=== PATIENT | male | born 1950 | race Caucasian/White ===

== ENCOUNTER 2017-12-04 00:54 | Outpatient (CLI) | payer MEDICARE, MEDICAID, SELFPAY ==
--- NOTE | 2017-12-04 10:09 | DI.US_ITS ---
SYMPTOMS/DIAGNOSIS: F/U CYST AND STONES, N28.1, N20.1, Z80.51 RENAL ULTRASOUND: The right kidney measures 12.2 x 5 x 7.5 cm, the left kidney 12.3 x 5.9 x 6.3 cm. The prevoid bladder contains 94 cc, the postvoid bladder 9 cc. Both ureteral jets were demonstrated. The bladder wall thickness is 2 mm. There is a 1.8 x 1.7 x 2.1 cm mid to lateral lower pole cyst in the left kidney. A 3 mm echogenic focus in the mid pole of the left kidney could represent a small stone. There is no evidence of hydronephrosis. The right kidney is unremarkable. Incidental note is made of multiple apparently solid areas of nodularity in the right hepatic lobe, the largest of which measures 3.9 x 3.2 x 4.0 cm and appears avascular. Further assessment of this patient with multiphasic abdominal CT is recommended.
[2017-12-04 15:48] LABS: Bilirubin Negative (Negative); Blood Trace-intact (Negative); Clarity Clear; Glucose >=1000 mg/dL (Negative); Ketones Negative (Negative); Leukocyte Esterase Negative (Negative); Nitrite Negative (Negative); pH 5.5 (5-8)
[2017-12-04 16:13] LABS: Bacteria Negative HPF (Negative); Casts Negative LPF (Negative); Crystals Negative HPF (Negative); Epithelial Cells Rare HPF (Negative); Mucus Negative (Negative); Other Cells Negative (Negative); RBC Negative (0-2); WBC 0-2 HPF (0-5)
[2017-12-04 16:14] LABS: C & S Indicated? No
== END 2017-12-04 01:14 ==
PROVIDERS: PCP Family Medicine; Visit Provider Urology
DX: N39.0 Urinary tract infection, site not specified (principal); N20.1 Calculus of ureter; K76.89 Other specified diseases of liver; Z80.51 Family history of malignant neoplasm of kidney; R16.0 Hepatomegaly, not elsewhere classified; N28.1 Cyst of kidney, acquired
CPT/HCPCS: 36415; 76770; 99213; 81003; 81015; 82565

== ENCOUNTER 2017-12-11 00:38 | Outpatient (CLI) | payer MEDICARE, MEDICAID, SELFPAY ==
--- NOTE | 2017-12-11 07:07 | DI.CT_ITS ---
SYMPTOMS/DIAGNOSIS: EVALUATE LIVER MASS AND POSSIBLE PRIMARY SITES, R16.0 CT OF THE CHEST, ABDOMEN AND PELVIS: Images were performed from the clavicle through the ischial tuberosities after IV and oral contrast. The abdominal scan was performed during both venous and arterial phases. CHEST CT: There is a spiculated mass in the right upper lobe, measuring 1.1 cm. A few small nodules are seen in the right middle lobe, measuring less than 5 mm. There are multiple small nodules in the right lower lobe, the largest is a cavitary lesion at the posterior lung base, measuring 8 mm. Multiple less than 5 mm nodules are seen in both left upper and lower lobes. There is no adenopathy, pleural or pericardial effusions. There is a destructive expansile bony lesion involving the left side of the T3 vertebral body. An additional small lytic lesion is seen in the right lamina of T2. There is a small focal lytic lesion seen in the posterior body of the T7 vertebral body. There is a sclerotic lesion in the right side of the T8 vertebral body, which could represent a bone island. ABDOMEN AND PELVIS: Multiple irregular low density lesions are noted throughout the liver. The largest is at the inferomedial right lobe, measuring 3.4 cm. The patient is status post cholecystectomy. There is no biliary dilatation. There is a large mass involving the body and tail of the pancreas, which has an invasive appearance, which measures 6.7 x 3.2 x 3.9 cm. The mass is directly contiguous with the inferior aspect of the stomach, which shows focal wall thickening. The splenic artery appears patent. There is some attenuation of the splenic vein as it courses posterior to the mass. Small lymph nodes are seen in the portal caval region. The adrenals, spleen and right kidney are unremarkable. There is a tiny nonobstructing stone near the upper pole of the left kidney. A cyst is noted on the left kidney. There is prominent diverticulosis of the sigmoid colon and wall thickening. There is no gross evidence of a mass. The oral contrast extends to the small bowel, but not the colon. The prostate is slightly enlarged. The bladder appears normal. There is mild calcification of the aorta and iliac arteries. No ascites or bony lesions are identified in the abdomen or pelvis. IMPRESSION: Pancreatic mass with liver metastases and pulmonary metastases, as well as regionally enlarged lymph nodes. Bony metastases are noted in the thoracic spine.
[2017-12-11] MEDS: Omnipaque 350 MG/ML 100 ML BTL IJ (08:55)
[2017-12-11] MEDS: Omnipaque 350 MG/ML 50 ML BTL IJ (08:56)
== END 2017-12-11 00:58 ==
PROVIDERS: PCP Family Medicine; Visit Provider Nurse Practitioner Gerontology
DX: C25.1 Malignant neoplasm of body of pancreas (principal); C78.01 Secondary malignant neoplasm of right lung; C79.51 Secondary malignant neoplasm of bone; C78.7 Secondary malignant neoplasm of liver and intrahepatic bile duct; R59.0 Localized enlarged lymph nodes; N28.1 Cyst of kidney, acquired; K57.30 Diverticulosis of large intestine without perforation or abscess without bleeding; N40.0 Benign prostatic hyperplasia without lower urinary tract symptoms
CPT/HCPCS: 74177; 71260; J3490; Q9967

== ENCOUNTER → 2017-12-31 08:41 | Outpatient (BNVA) | payer MEDICARE, MEDICAID, SELFPAY | PROVIDERS: PCP Family Medicine; Visit Provider Urology | DX: N50.9 Disorder of male genital organs, unspecified (principal); C25.9 Malignant neoplasm of pancreas, unspecified; E11.9 Type 2 diabetes mellitus without complications; Z79.84 Long term (current) use of oral hypoglycemic drugs | CPT/HCPCS: 99213 ==

== ENCOUNTER 2018-01-04 15:10 | Outpatient (CLI) | payer MEDICARE, MEDICAID, SELFPAY ==
--- NOTE | 2018-01-04 15:00 | DIABASSESS_ITS ---
DESCRIPTION/ASSESSMENT: Mr. Burks presents for diabetes self management to learn insulin injection with a support person. He voices that insulin is required because of his pancreatic cancer. He also is concerned about his weight loss and wants to regain some of that. He monitors his blood sugars every morning and bedtime. Blood sugars reported in the 200s. He downloads his glucometer and prints out the results. He has been told by the RD at [facility] that he can he whatever he wants which is supported from here as well. He states he is familiar with insulin injection as he has done it to others in the past. INTERVENTION: Instructed in the use insulin pen and he is able to return demonstration without difficulty except for the need to hold needle in for 10 seconds. He voices understanding of this. Instructed in needle disposal, injection sites, hypogycemia symptoms and treatment. ACTION PLAN: He will initiate insulin as directed by PCP canelo. He knows to call with questions. Individual DSME/T ___0_ units billed Face to face 20 minutes. No DM group education series being offered at this time.
== END 2018-01-04 15:30 ==
PROVIDERS: PCP Family Medicine; Visit Provider Dietitian, Registered
DX: E11.9 Type 2 diabetes mellitus without complications (principal); Z79.4 Long term (current) use of insulin

== ENCOUNTER 2018-01-15 08:56 | Outpatient (RCR) | payer MEDICARE, MEDICAID, SELFPAY ==
[2018-01-15] MEDS: Normal Saline Flush 10 ML SYR IVP (09:05)
[2018-01-15 09:28] LABS: Abs Immature Grans 0.03 k/cumm (0.0-0.09); Absolute Basophil Count 0.02 k/cumm (0.0-0.2); Absolute Eosinophil Count 0.11 k/cumm (0.0-0.7); Absolute Lymphocyte Count 1.24 k/cumm (1.2-3.4); Absolute Monocyte Count 1.11 k/cumm (0.11-0.7); Absolute Neutrophil Count 6.69 k/cumm (1.2-6.7); Basophils % 0.2; Eosinophils % 1.2; HCT 37.7 % (40.0-50.0); HGB 12.5 g/dL (13.5-17.5); Immature Grans % 0.3; Lymphocytes % 13.5; Mean Corp. HGB Concentration 33.2 g/dL (32.0-36.0); Mean Corpuscular Hemoglobin 29.7 pg (27.0-33.0); Mean Corpuscular Volume 89.5 fL (80-95); Mean Platelet Volume 11.6 fL (8.0-11.0); Monocytes % 12.1; Neutrophils % 72.7; Platelet Count 275 x1000/uL (130-400); RBC 4.21 m/cumm (4.50-6.00); RBC Distribution Width 12.1 % (11.8-14.1)
[2018-01-15 09:40] LABS: ALT 28 U/L (12-78); AST 16 U/L (15-37); Alkaline Phosphatase 189 U/L (46-116); Anion Gap 7.1 mmol/L (3-11); BUN 14 mg/dL (7-18); Bilirubin, Total 0.7 mg/dL (0.2-1.0); CO2 28.9 mmol/L (21.0-32.0); CREATININE 0.95 mg/dL (0.70-1.30); Calcium 9.2 mg/dL (8.5-10.1); Chloride 98 mmol/L (98-107); Glucose 303 mg/dL (70-100); Potassium 4.2 mmol/L (3.5-5.1); Sodium 134 mmol/L (136-145); Total Protein 7.7 g/dL (6.4-8.2)
== END 2018-01-18 23:59 | disposition home or self-care (01) ==
LOC: INF 08:56
PROVIDERS: PCP Family Medicine; Visit Provider Nurse Practitioner Adult Health
DX: C25.1 Malignant neoplasm of body of pancreas (principal); Z45.2 Encounter for adjustment and management of vascular access device
CPT/HCPCS: 36591; 80053; 85025

== ENCOUNTER 2018-02-08 01:33 | Outpatient (RCR) | payer MEDICARE, MEDICAID, SELFPAY ==
[2018-01-25 09:02] LABS: Absolute Basophil Count 0.01 k/cumm (0.0-0.2); Absolute Eosinophil Count 0.12 k/cumm (0.0-0.7); Absolute Lymphocyte Count 0.98 k/cumm (1.2-3.4); Absolute Monocyte Count 0.52 k/cumm (0.11-0.7); Absolute Neutrophil Count 1.69 k/cumm (1.2-6.7); Basophils % 0.3; Eosinophils % 3.6; HCT 34.6 % (40.0-50.0); HGB 11.7 g/dL (13.5-17.5); Lymphocytes % 29.5; Mean Corp. HGB Concentration 33.8 g/dL (32.0-36.0); Mean Corpuscular Hemoglobin 29.4 pg (27.0-33.0); Mean Corpuscular Volume 86.9 fL (80-95); Mean Platelet Volume 10.6 fL (8.0-11.0); Monocytes % 15.7; Neutrophils % 50.9; Platelet Count 251 x1000/uL (130-400); RBC 3.98 m/cumm (4.50-6.00); RBC Distribution Width 11.7 % (11.8-14.1); White Blood Cell Count 3.32 k/cumm (4.4-10.8)
[2018-01-25 09:14] LABS: ALT 41 U/L (12-78); AST 20 U/L (15-37); Albumin 2.7 g/dL (3.4-5.0); Alkaline Phosphatase 210 U/L (46-116); Anion Gap 11.7 mmol/L (3-11); BUN 14 mg/dL (7-18); Bilirubin, Total 0.5 mg/dL (0.2-1.0); CO2 27.3 mmol/L (21.0-32.0); CREATININE 0.89 mg/dL (0.70-1.30); Calcium 9.1 mg/dL (8.5-10.1); Chloride 96 mmol/L (98-107); Glucose 146 mg/dL (70-100); Potassium 3.9 mmol/L (3.5-5.1); Sodium 135 mmol/L (136-145); Total Protein 7.1 g/dL (6.4-8.2)
[2018-01-25] MEDS: Normal Saline Flush 10 ML SYR IVP (09:37)
[2018-02-08] MEDS: Normal Saline Flush 10 ML SYR IVP (10:42)
[2018-02-08 10:57] LABS: Absolute Basophil Count 0.01 k/cumm (0.0-0.2); Absolute Eosinophil Count 0.04 k/cumm (0.0-0.7); Absolute Lymphocyte Count 0.69 k/cumm (1.2-3.4); Absolute Monocyte Count 0.26 k/cumm (0.11-0.7); Absolute Neutrophil Count 1.04 k/cumm (1.2-6.7); Basophils % 0.5; HCT 32.2 % (40.0-50.0); HGB 10.7 g/dL (13.5-17.5); Lymphocytes % 33.8; Mean Corp. HGB Concentration 33.2 g/dL (32.0-36.0); Mean Corpuscular Hemoglobin 29.2 pg (27.0-33.0); Mean Platelet Volume 10.5 fL (8.0-11.0); Monocytes % 12.7; Platelet Count 173 x1000/uL (130-400); RBC 3.66 m/cumm (4.50-6.00); RBC Distribution Width 12.4 % (11.8-14.1); White Blood Cell Count 2.04 k/cumm (4.4-10.8)
[2018-02-08 11:08] LABS: ALT 51 U/L (12-78); AST 20 U/L (15-37); Albumin 2.6 g/dL (3.4-5.0); Alkaline Phosphatase 216 U/L (46-116); Anion Gap 9.7 mmol/L (3-11); BUN 15 mg/dL (7-18); Bilirubin, Total 0.6 mg/dL (0.2-1.0); CO2 26.3 mmol/L (21.0-32.0); CREATININE 0.76 mg/dL (0.70-1.30); Chloride 99 mmol/L (98-107); Glucose 241 mg/dL (70-100); Potassium 3.7 mmol/L (3.5-5.1); Sodium 135 mmol/L (136-145); Total Protein 6.8 g/dL (6.4-8.2)
[2018-02-08 11:16] LABS: Diff Comment Agrees w/ Instrument; RBC Morphology Normal
[2018-02-11 12:36] LABS: CA 19-9 22 U/mL (<35)
== END 2018-02-18 23:59 | disposition home or self-care (01) ==
LOC: INF 01:33
PROVIDERS: PCP Family Medicine; Visit Provider Nurse Practitioner Adult Health
DX: C25.1 Malignant neoplasm of body of pancreas (principal); Z45.2 Encounter for adjustment and management of vascular access device
CPT/HCPCS: 36591; 80053; 96523; 85025; 86301

== ENCOUNTER 2018-02-18 01:26 | Outpatient (RCR) | payer MEDICARE, MEDICAID, SELFPAY | END 2018-02-18 23:59 | disposition home or self-care (01) | LOC: INF 01:26 | PROVIDERS: PCP Family Medicine; Visit Provider Nurse Practitioner Adult Health | DX: R69 Illness, unspecified (principal) ==

== ENCOUNTER 2018-03-12 00:39 | Outpatient (CLI) | payer MEDICARE, MEDICAID, SELFPAY ==
--- NOTE | 2018-03-12 09:00 | DI.CT_ITS ---
SYMPTOMS/DIAGNOSIS: STAGE IV PANCREATIC CA, ON CHEMO, C25.9, C78.7 CT SCAN OF THE CHEST, ABDOMEN AND PELVIS: CT scan of the chest, abdomen and pelvis was performed according to protocol. CT SCAN OF THE ABDOMEN AND PELVIS: There are again seen multiple hepatic metastases. The largest is seen in the caudal aspect of the right lobe of the liver. It has shown interval increase in size measuring 4.6 cm AP x 4.4 cm transverse compared with 3 x 3.4 cm. There also appears to be interval increase in number of the hepatic metastases. The patient is status post cholecystectomy. There is no biliary ductal dilatation. There is again seen a mass in the body of the pancreas. It measures 6.8 cm long x 4 cm AP. It appears to be contiguous with or involving the body of the stomach. There also appears to be encasement of the splenic artery and vein. The mid portion of the splenic vein is not visualized. There appear to varices adjacent to the head of the pancreas and within the splenic hilum. The splenic artery does appear to be visualized but at least partially encased by the pancreatic mass. There is no evidence of an adrenal mass. The spleen appears grossly unremarkable. The kidneys show normal and symmetric enhancement. No evidence of a solid renal mass or obstruction. There is a left renal cyst present. The urinary bladder is intact. The reproductive organs are unremarkable. There have developed soft tissue masses with the abdomen in the region of the omentum suspicious for omental metastases disease. The bowel shows no evidence of obstruction or inflammation. There is a normal appendix visualized. Degenerative changes are seen in the spine. No osseous metastases are identified. The aorta is of normal caliber. No pneumoperitoneum is present. IMPRESSION: 1. Increase in number and size of hepatic metastases. 2. Development of masses within the abdominal cavity suspicious for omental metastatic disease. 3. Mass involving the body and portion of the tail of the pancreas with probable obstruction of the mid splenic vein with varices seen around the pancreatic head and the splenic hilum. CT SCAN OF THE CHEST: The thoracic aorta is of normal caliber. The central pulmonary arteries are patent. The heart size is within normal limits. No significant pericardial effusion is seen. There are mildly enlarged lymph nodes seen in the mediastinum. There is again seen a 1 cm nodule in the pericardial fat on the left. No pleural effusion or pneumothorax is identified. There are again seen multiple pulmonary nodules. The largest nodule in the right upper lobe has shown interval decrease in size. No definite new pulmonary nodules are seen. No infiltrates are seen. The tracheobronchial tree is unremarkable. The lytic lesions at T 2, T 3 and T 7 have all increased in size. There also now appear to be lytic lesions at T 10 and T 11. The lytic lesion at T 3 now shows compression of the superior endplate and a fracture in the inferior endplate. IMPRESSION: 1. Progression of the osseous metastatic disease with a pathologic fracture involving the T 3 vertebral body. There is mild loss of height of the vertebral body noted. 2. Multiple pulmonary nodules. The largest previously noted nodule in the right upper lobe has shown interval decrease in size.
[2018-03-12] MEDS: Omnipaque 350 MG/ML 100 ML BTL IJ (11:20)
[2018-03-12] MEDS: Omnipaque 350 MG/ML 50 ML BTL IJ (11:21)
[2018-03-12] MEDS: Breeza Beverage 473 ML BTL PO (11:21)
== END 2018-03-12 00:59 ==
PROVIDERS: PCP Family Medicine; Visit Provider Internal Medicine Hematology & Oncology
DX: C25.9 Malignant neoplasm of pancreas, unspecified (principal); C78.7 Secondary malignant neoplasm of liver and intrahepatic bile duct; C79.51 Secondary malignant neoplasm of bone; C78.6 Secondary malignant neoplasm of retroperitoneum and peritoneum; R91.8 Other nonspecific abnormal finding of lung field; Z92.21 Personal history of antineoplastic chemotherapy
CPT/HCPCS: 74177; 96523; 71260; J3490; Q9967

== ENCOUNTER 2018-03-15 00:55 | Outpatient (RCR) | payer MEDICARE, MEDICAID, SELFPAY ==
[2018-03-01] MEDS: Heparin 500 UNITS/5 ML SYRINGE IV (13:05)
[2018-03-01] MEDS: Normal Saline Flush 10 ML SYR IVP (13:05)
[2018-03-01 13:08] LABS: Abs Immature Grans 0.01 k/cumm (0.0-0.09); Absolute Basophil Count 0.03 k/cumm (0.0-0.2); Absolute Eosinophil Count 0.27 k/cumm (0.0-0.7); Absolute Lymphocyte Count 1.03 k/cumm (1.2-3.4); Absolute Monocyte Count 0.58 k/cumm (0.11-0.7); Absolute Neutrophil Count 2.38 k/cumm (1.2-6.7); Basophils % 0.7; Eosinophils % 6.3; HCT 31.5 % (40.0-50.0); HGB 10.2 g/dL (13.5-17.5); Immature Grans % 0.2; Mean Corp. HGB Concentration 32.4 g/dL (32.0-36.0); Mean Corpuscular Hemoglobin 28.9 pg (27.0-33.0); Mean Corpuscular Volume 89.2 fL (80-95); Mean Platelet Volume 10.1 fL (8.0-11.0); Monocytes % 13.5; Neutrophils % 55.3; Platelet Count 291 x1000/uL (130-400); RBC 3.53 m/cumm (4.50-6.00); RBC Distribution Width 14.8 % (11.8-14.1)
[2018-03-01 13:21] LABS: ALT 38 U/L (12-78); AST 22 U/L (15-37); Albumin 2.7 g/dL (3.4-5.0); Alkaline Phosphatase 229 U/L (46-116); Anion Gap 8.7 mmol/L (3-11); BUN 21 mg/dL (7-18); Bilirubin, Total 0.5 mg/dL (0.2-1.0); CO2 27.3 mmol/L (21.0-32.0); CREATININE 0.96 mg/dL (0.70-1.30); Calcium 9.1 mg/dL (8.5-10.1); Chloride 100 mmol/L (98-107); Glucose 193 mg/dL (70-100); Potassium 4.2 mmol/L (3.5-5.1); Sodium 136 mmol/L (136-145); Total Protein 7.2 g/dL (6.4-8.2)
[2018-03-04 10:10] LABS: CA 19-9 21 U/mL (<35)
[2018-03-12] MEDS: Heparin 500 UNITS/5 ML SYRINGE IV (09:10)
[2018-03-12] MEDS: Normal Saline Flush 10 ML SYR IVP (09:10)
[2018-03-15] MEDS: Normal Saline Flush 10 ML SYR IVP (13:14)
[2018-03-15] MEDS: Heparin 500 UNITS/5 ML SYRINGE IV (13:14)
[2018-03-15 13:30] LABS: Abs Immature Grans 0.01 k/cumm (0.0-0.09); Absolute Basophil Count 0.01 k/cumm (0.0-0.2); Absolute Eosinophil Count 0.05 k/cumm (0.0-0.7); Absolute Lymphocyte Count 1.08 k/cumm (1.2-3.4); Absolute Monocyte Count 0.47 k/cumm (0.11-0.7); Absolute Neutrophil Count 2.04 k/cumm (1.2-6.7); Basophils % 0.3; Eosinophils % 1.4; HCT 30.4 % (40.0-50.0); HGB 9.9 g/dL (13.5-17.5); Immature Grans % 0.3; Lymphocytes % 29.5; Mean Corp. HGB Concentration 32.6 g/dL (32.0-36.0); Mean Corpuscular Hemoglobin 29.2 pg (27.0-33.0); Mean Corpuscular Volume 89.7 fL (80-95); Mean Platelet Volume 9.8 fL (8.0-11.0); Monocytes % 12.8; Neutrophils % 55.7; Platelet Count 162 x1000/uL (130-400); RBC 3.39 m/cumm (4.50-6.00); RBC Distribution Width 15.3 % (11.8-14.1); White Blood Cell Count 3.66 k/cumm (4.4-10.8)
[2018-03-15 13:44] LABS: ALT 48 U/L (12-78); AST 31 U/L (15-37); Albumin 2.8 g/dL (3.4-5.0); Alkaline Phosphatase 288 U/L (46-116); Anion Gap 8.3 mmol/L (3-11); BUN 19 mg/dL (7-18); Bilirubin, Total 0.4 mg/dL (0.2-1.0); CO2 28.7 mmol/L (21.0-32.0); CREATININE 0.81 mg/dL (0.70-1.30); Calcium 8.9 mg/dL (8.5-10.1); Chloride 101 mmol/L (98-107); Glucose 131 mg/dL (70-100); Potassium 4.1 mmol/L (3.5-5.1); Sodium 138 mmol/L (136-145); Total Protein 7.2 g/dL (6.4-8.2)
[2018-03-18 11:31] LABS: CA 19-9 25 U/mL (<35)
== END 2018-03-21 23:59 | disposition home or self-care (01) ==
LOC: INF 00:55
PROVIDERS: PCP Family Medicine; Visit Provider Nurse Practitioner Adult Health
DX: C25.1 Malignant neoplasm of body of pancreas (principal); Z45.2 Encounter for adjustment and management of vascular access device
CPT/HCPCS: 36591; 80053; 96523; 85025; 86301

== ENCOUNTER 2018-04-12 01:01 | Outpatient (RCR) | payer MEDICARE, MEDICAID, SELFPAY ==
[2018-03-29] MEDS: Normal Saline Flush 10 ML SYR IVP (08:55)
[2018-03-29 09:17] LABS: Abs Immature Grans 0.01 k/cumm (0.0-0.09); Absolute Basophil Count 0.01 k/cumm (0.0-0.2); Absolute Eosinophil Count 0.02 k/cumm (0.0-0.7); Absolute Lymphocyte Count 0.92 k/cumm (1.2-3.4); Absolute Monocyte Count 0.46 k/cumm (0.11-0.7); Absolute Neutrophil Count 2.66 k/cumm (1.2-6.7); Basophils % 0.2; Eosinophils % 0.5; HCT 27.9 % (40.0-50.0); Immature Grans % 0.2; Lymphocytes % 22.5; Mean Corp. HGB Concentration 31.5 g/dL (32.0-36.0); Mean Corpuscular Hemoglobin 28.9 pg (27.0-33.0); Mean Corpuscular Volume 91.8 fL (80-95); Mean Platelet Volume 9.8 fL (8.0-11.0); Monocytes % 11.3; Neutrophils % 65.3; Platelet Count 169 x1000/uL (130-400); RBC 3.04 m/cumm (4.50-6.00); RBC Distribution Width 15.3 % (11.8-14.1); White Blood Cell Count 4.08 k/cumm (4.4-10.8)
[2018-03-29 09:30] LABS: ALT 43 U/L (12-78); AST 26 U/L (15-37); Albumin 2.4 g/dL (3.4-5.0); Alkaline Phosphatase 380 U/L (46-116); Anion Gap 8.1 mmol/L (3-11); BUN 17 mg/dL (7-18); Bilirubin, Total 0.6 mg/dL (0.2-1.0); CO2 27.9 mmol/L (21.0-32.0); Calcium 8.8 mg/dL (8.5-10.1); Chloride 100 mmol/L (98-107); Glucose 149 mg/dL (70-100); HGB 8.8 g/dL (13.5-17.5); Potassium 4.1 mmol/L (3.5-5.1); Sodium 136 mmol/L (136-145); Total Protein 7.6 g/dL (6.4-8.2)
[2018-04-04] MEDS: Normal Saline Flush 10 ML SYR IVP (10:10)
[2018-04-04 10:30] LABS: Abs Immature Grans 0.01 k/cumm (0.0-0.09); Absolute Basophil Count 0.01 k/cumm (0.0-0.2); Absolute Lymphocyte Count 0.78 k/cumm (1.2-3.4); Absolute Neutrophil Count 0.82 k/cumm (1.2-6.7); Basophils % 0.5; HCT 25.4 % (40.0-50.0); HGB 8.1 g/dL (13.5-17.5); Immature Grans % 0.5; Lymphocytes % 42.9; Mean Corp. HGB Concentration 31.9 g/dL (32.0-36.0); Mean Corpuscular Hemoglobin 29.7 pg (27.0-33.0); Mean Platelet Volume 10.4 fL (8.0-11.0); Neutrophils % 45.1; Platelet Count 148 x1000/uL (130-400); RBC 2.73 m/cumm (4.50-6.00); RBC Distribution Width 15.5 % (11.8-14.1)
[2018-04-04 10:44] LABS: ALT 49 U/L (12-78); AST 36 U/L (15-37); Albumin 2.4 g/dL (3.4-5.0); Alkaline Phosphatase 389 U/L (46-116); Anion Gap 7.5 mmol/L (3-11); BUN 17 mg/dL (7-18); Bilirubin, Total 0.4 mg/dL (0.2-1.0); CO2 28.5 mmol/L (21.0-32.0); CREATININE 0.84 mg/dL (0.70-1.30); Calcium 8.7 mg/dL (8.5-10.1); Chloride 102 mmol/L (98-107); Glucose 165 mg/dL (70-100); Sodium 138 mmol/L (136-145); Total Protein 7.2 g/dL (6.4-8.2)
[2018-04-04 10:48] LABS: Diff Comment Diff Reviewed; RBC Morphology Normal; White Blood Cell Count 1.82 k/cumm (4.4-10.8)
[2018-04-12] MEDS: Normal Saline Flush 10 ML SYR IVP (08:24)
[2018-04-12 08:39] LABS: Abs Immature Grans 0.02 k/cumm (0.0-0.09); Absolute Basophil Count 0.04 k/cumm (0.0-0.2); Absolute Eosinophil Count 0.07 k/cumm (0.0-0.7); Absolute Lymphocyte Count 1.03 k/cumm (1.2-3.4); Absolute Monocyte Count 1.07 k/cumm (0.11-0.7); Absolute Neutrophil Count 3.64 k/cumm (1.2-6.7); Basophils % 0.7; Eosinophils % 1.2; HCT 27.8 % (40.0-50.0); HGB 8.8 g/dL (13.5-17.5); Immature Grans % 0.3; Lymphocytes % 17.5; Mean Corp. HGB Concentration 31.7 g/dL (32.0-36.0); Mean Corpuscular Hemoglobin 29.4 pg (27.0-33.0); Mean Platelet Volume 9.6 fL (8.0-11.0); Monocytes % 18.2; Neutrophils % 62.1; RBC 2.99 m/cumm (4.50-6.00); RBC Distribution Width 16.1 % (11.8-14.1); White Blood Cell Count 5.87 k/cumm (4.4-10.8)
[2018-04-12 08:47] LABS: ALT 32 U/L (12-78); AST 26 U/L (15-37); Albumin 2.4 g/dL (3.4-5.0); Alkaline Phosphatase 371 U/L (46-116); Anion Gap 6.3 mmol/L (3-11); BUN 18 mg/dL (7-18); Bilirubin, Total 0.3 mg/dL (0.2-1.0); CO2 28.7 mmol/L (21.0-32.0); CREATININE 0.87 mg/dL (0.70-1.30); Calcium 8.2 mg/dL (8.5-10.1); Chloride 101 mmol/L (98-107); Glucose 134 mg/dL (70-100); Potassium 4.4 mmol/L (3.5-5.1); Sodium 136 mmol/L (136-145); Total Protein 7.4 g/dL (6.4-8.2)
[2018-04-12 08:52] LABS: Anisocytosis 1+; Diff Comment RBC Morph Reviewed; Platelet Count 575 x1000/uL (130-400); Polychromasia Present
== END 2018-04-18 23:59 | disposition home or self-care (01) ==
LOC: INF 01:01
PROVIDERS: Nurse Practitioner Adult Health; PCP Family Medicine; Visit Provider Internal Medicine Hematology & Oncology
DX: C25.1 Malignant neoplasm of body of pancreas (principal); Z45.2 Encounter for adjustment and management of vascular access device
CPT/HCPCS: 36591; 80053; 85025

== ENCOUNTER 2018-05-10 01:04 | Outpatient (RCR) | payer MEDICARE, MEDICAID, SELFPAY ==
[2018-04-19] MEDS: Normal Saline Flush 10 ML SYR IVP (07:49)
[2018-04-19 08:07] LABS: Abs Immature Grans 0.05 k/cumm (0.0-0.09); Absolute Basophil Count 0.05 k/cumm (0.0-0.2); Absolute Eosinophil Count 0.03 k/cumm (0.0-0.7); Absolute Lymphocyte Count 0.98 k/cumm (1.2-3.4); Absolute Monocyte Count 0.72 k/cumm (0.11-0.7); Absolute Neutrophil Count 2.93 k/cumm (1.2-6.7); Basophils % 1.1; Eosinophils % 0.6; HCT 25.4 % (40.0-50.0); Immature Grans % 1.1; Lymphocytes % 20.6; Mean Corp. HGB Concentration 31.9 g/dL (32.0-36.0); Mean Corpuscular Hemoglobin 29.5 pg (27.0-33.0); Mean Corpuscular Volume 92.4 fL (80-95); Mean Platelet Volume 10.4 fL (8.0-11.0); Monocytes % 15.1; Neutrophils % 61.5; Platelet Count 250 x1000/uL (130-400); RBC 2.75 m/cumm (4.50-6.00); RBC Distribution Width 15.1 % (11.8-14.1); White Blood Cell Count 4.76 k/cumm (4.4-10.8)
[2018-04-19 08:10] LABS: ALT 44 U/L (12-78); AST 35 U/L (15-37); Albumin 2.4 g/dL (3.4-5.0); Alkaline Phosphatase 397 U/L (46-116); Anion Gap 7.4 mmol/L (3-11); BUN 18 mg/dL (7-18); Bilirubin, Total 0.3 mg/dL (0.2-1.0); CO2 28.6 mmol/L (21.0-32.0); CREATININE 0.86 mg/dL (0.70-1.30); Calcium 8.5 mg/dL (8.5-10.1); Chloride 101 mmol/L (98-107); Glucose 196 mg/dL (70-100); HGB 8.1 g/dL (13.5-17.5); Potassium 4.2 mmol/L (3.5-5.1); Sodium 137 mmol/L (136-145)
[2018-04-19 08:59] LABS: Reticulocyte 1.1 % (0.5-2.4)
[2018-04-19 09:08] LABS: Iron 18 ug/dL (50-175); Total Iron Binding Capacity 185 ug/dL (250-450); Transferrin Sat 10 % (20-55)
[2018-04-19 09:35] LABS: Ferritin 739 ng/mL (8-388); Vitamin B12 448 pg/mL (193-986)
[2018-04-19 09:47] LABS: Folate > 20.0 ng/mL (8.6-20.0)
[2018-05-03] MEDS: Normal Saline Flush 10 ML SYR IVP ×2 (09:35→14:26)
[2018-05-03 09:42] LABS: Abs Immature Grans 0.03 k/cumm (0.0-0.09); Absolute Basophil Count 0.06 k/cumm (0.0-0.2); Absolute Eosinophil Count 0.23 k/cumm (0.0-0.7); Absolute Lymphocyte Count 0.63 k/cumm (1.2-3.4); Absolute Monocyte Count 1.03 k/cumm (0.11-0.7); Absolute Neutrophil Count 6.46 k/cumm (1.2-6.7); Basophils % 0.7; Eosinophils % 2.7; HCT 26.8 % (40.0-50.0); HGB 8.5 g/dL (13.5-17.5); Immature Grans % 0.4; Lymphocytes % 7.5; Mean Corp. HGB Concentration 31.7 g/dL (32.0-36.0); Mean Corpuscular Volume 91.5 fL (80-95); Mean Platelet Volume 10.2 fL (8.0-11.0); Monocytes % 12.2; Neutrophils % 76.5; RBC 2.93 m/cumm (4.50-6.00); RBC Distribution Width 15.5 % (11.8-14.1); White Blood Cell Count 8.44 k/cumm (4.4-10.8)
[2018-05-03 09:58] LABS: ALT 34 U/L (12-78); AST 34 U/L (15-37); Albumin 2.4 g/dL (3.4-5.0); Alkaline Phosphatase 331 U/L (46-116); Anion Gap 7.8 mmol/L (3-11); BUN 17 mg/dL (7-18); Bilirubin, Total 0.5 mg/dL (0.2-1.0); CO2 27.2 mmol/L (21.0-32.0); CREATININE 0.95 mg/dL (0.70-1.30); Calcium 8.4 mg/dL (8.5-10.1); Chloride 96 mmol/L (98-107); Glucose 178 mg/dL (70-100); Potassium 4.6 mmol/L (3.5-5.1); Sodium 131 mmol/L (136-145); Total Protein 6.9 g/dL (6.4-8.2)
[2018-05-03 10:00] LABS: Anisocytosis 1+; Diff Comment RBC Morph Reviewed; Platelet Count 469 x1000/uL (130-400)
[2018-05-03 10:01] LABS: Hypochromasia 1+; Polychromasia Present
[2018-05-03] MEDS: Heparin 500 UNITS/5 ML SYRINGE IV (14:26)
[2018-05-06] VITALS (8 sets, daily range): BP systolic 91–102; BP diastolic 55–64; PULSE 68–105; RESP 18–19; TEMP 36.3–36.7; O2SAT 97–100
[2018-05-06 11:06] LABS: CA 19-9 17 U/mL (<35)
[2018-05-06] MEDS: Heparin 500 UNITS/5 ML SYRINGE IV (11:30)
[2018-05-06] MEDS: Normal Saline Flush 10 ML SYR IVP (11:30)
[2018-05-10] MEDS: Normal Saline Flush 10 ML SYR IVP (08:00)
[2018-05-10 08:31] LABS: Abs Immature Grans 0.02 k/cumm (0.0-0.09); Absolute Basophil Count 0.03 k/cumm (0.0-0.2); Absolute Eosinophil Count 0.07 k/cumm (0.0-0.7); Absolute Monocyte Count 0.65 k/cumm (0.11-0.7); Absolute Neutrophil Count 3.24 k/cumm (1.2-6.7); Basophils % 0.7; Eosinophils % 1.5; HCT 29.5 % (40.0-50.0); HGB 9.6 g/dL (13.5-17.5); Immature Grans % 0.4; Mean Corp. HGB Concentration 32.5 g/dL (32.0-36.0); Mean Corpuscular Hemoglobin 29.4 pg (27.0-33.0); Mean Corpuscular Volume 90.5 fL (80-95); Mean Platelet Volume 10.8 fL (8.0-11.0); Monocytes % 14.1; Neutrophils % 70.3; Platelet Count 155 x1000/uL (130-400); RBC 3.26 m/cumm (4.50-6.00); RBC Distribution Width 14.9 % (11.8-14.1); White Blood Cell Count 4.61 k/cumm (4.4-10.8)
[2018-05-10 08:46] LABS: ALT 56 U/L (12-78); AST 50 U/L (15-37); Albumin 2.3 g/dL (3.4-5.0); Alkaline Phosphatase 364 U/L (46-116); Anion Gap 6.1 mmol/L (3-11); BUN 20 mg/dL (7-18); Bilirubin, Total 0.4 mg/dL (0.2-1.0); CO2 26.9 mmol/L (21.0-32.0); CREATININE 0.85 mg/dL (0.70-1.30); Calcium 8.6 mg/dL (8.5-10.1); Chloride 101 mmol/L (98-107); Glucose 139 mg/dL (70-100); Potassium 4.3 mmol/L (3.5-5.1); Sodium 134 mmol/L (136-145); Total Protein 6.7 g/dL (6.4-8.2)
[2018-05-10 09:03] LABS: Diff Comment Diff Reviewed; RBC Morphology Normal
== END 2018-05-19 23:59 | disposition home or self-care (01) ==
LOC: INF 01:04
PROVIDERS: Nurse Practitioner Adult Health; PCP Family Medicine; Visit Provider Internal Medicine Hematology & Oncology
DX: C25.1 Malignant neoplasm of body of pancreas (principal); Z45.2 Encounter for adjustment and management of vascular access device
CPT/HCPCS: 36430; 36591; 80053; 86850; 86900; 86901; 86920; 82607; 82728; 82746; 83540; 83550; 85025; 85045; 86301; P9016

== ENCOUNTER 2018-05-20 01:05 | Outpatient (CLI) | payer MEDICARE, MEDICAID, SELFPAY ==
--- NOTE | 2018-05-20 11:21 | DI.CT_ITS ---
SYMPTOM/DIAGNOSIS: BEING TREATED FOR PANCREATIC CA, C25.1, ASSESS RESPONSE TO TREATMENT CHEST/ABDOMEN AND PELVIC CT: CT examination of the chest, abdomen and pelvis was performed with a bolus infusion of 100 cc's of Omnipaque 350 and ingestion of dilute barium. The examination is compared with most recent CT of 03/12/18. Multiple tiny intrapulmonary nodules again seen, these are predominantly decreased in size in comparison with the previous examination although some are unchanged in size. No new pulmonary nodules seen. No pleural effusion. No evidence of pulmonary embolic disease or other major vascular abnormality. Bony lesion of T 3 grossly unchanged in appearance. Left scapular lytic lesion grossly unchanged in appearance. T 11 vertebral body lytic lesion slightly larger than on examination of 03/12 and now measures about 12 mm. in greatest diameter. 1 cm. pericardial fat nodule again noted. There is increased mediastinal adenopathy with largest node 19 mm. in diameter in the subcarinal location, this node previously measured about 13 mm. in diameter. Multiple hepatic metastatic lesions again seen. No gross interval change in number or size in comparison with the previous examination. Spleen is grossly unremarkable. No new renal or adrenal lesions seen. Pancreatic mass previously measuring about 81 by 45 mm. in greatest transaxial diameter now measures about 70 by 30 mm. in diameter. Presumed omental metastases seen anteriorly in the abdomen show little overall change. CONCLUSION: 1. Interval decrease in size of numerous intrapulmonary nodules. 2. Increased mediastinal adenopathy with subcarinal nodes now noted. 3. Little overall change in appearance of multiple bony lesions with slight increase in size of T 11 vertebral body lesion. 4. No gross interval change in appearance of hepatic metastatic lesions. 5. Interval decrease in size of pancreatic body lesion. 6. Little overall change in appearance of presumed omental metastases.
[2018-05-20] MEDS: Omnipaque 350 MG/ML 100 ML BTL IJ (11:23)
== END 2018-05-20 01:25 ==
PROVIDERS: PCP Family Medicine; Visit Provider Nurse Practitioner Adult Health
DX: C25.1 Malignant neoplasm of body of pancreas (principal)
CPT/HCPCS: 74177; 71260; J3490

== ENCOUNTER 2018-05-24 10:13 | Outpatient (RCR) | payer MEDICARE, MEDICAID, SELFPAY | END 2018-06-18 23:59 | disposition home or self-care (01) | LOC: INF 10:13 | PROVIDERS: PCP Family Medicine; Visit Provider Internal Medicine Hematology & Oncology | DX: C25.1 Malignant neoplasm of body of pancreas (principal); Z45.2 Encounter for adjustment and management of vascular access device ==

== ENCOUNTER 2018-06-14 02:36 | Outpatient (RCR) | payer MEDICARE, MEDICAID, SELFPAY ==
[2018-05-24 08:52] LABS: Abs Immature Grans 0.04 k/cumm (0.0-0.09); Absolute Basophil Count 0.06 k/cumm (0.0-0.2); Absolute Eosinophil Count 0.31 k/cumm (0.0-0.7); Absolute Lymphocyte Count 1.25 k/cumm (1.2-3.4); Absolute Monocyte Count 1.21 k/cumm (0.11-0.7); Absolute Neutrophil Count 4.22 k/cumm (1.2-6.7); Basophils % 0.8; Eosinophils % 4.4; HCT 30.6 % (40.0-50.0); HGB 9.6 g/dL (13.5-17.5); Immature Grans % 0.6; Lymphocytes % 17.6; Mean Corp. HGB Concentration 31.4 g/dL (32.0-36.0); Mean Corpuscular Hemoglobin 28.4 pg (27.0-33.0); Mean Corpuscular Volume 90.5 fL (80-95); Mean Platelet Volume 10.3 fL (8.0-11.0); Monocytes % 17.1; Neutrophils % 59.5; RBC 3.38 m/cumm (4.50-6.00); RBC Distribution Width 16.4 % (11.8-14.1); White Blood Cell Count 7.09 k/cumm (4.4-10.8)
[2018-05-24] MEDS: Normal Saline Flush 10 ML SYR IVP (08:54)
[2018-05-24 09:03] LABS: ALT 42 U/L (12-78); AST 32 U/L (15-37); Albumin 2.2 g/dL (3.4-5.0); Alkaline Phosphatase 322 U/L (46-116); Anion Gap 6.9 mmol/L (3-11); BUN 18 mg/dL (7-18); Bilirubin, Total 0.4 mg/dL (0.2-1.0); CO2 28.1 mmol/L (21.0-32.0); Calcium 8.2 mg/dL (8.5-10.1); Chloride 101 mmol/L (98-107); Glucose 153 mg/dL (70-100); Potassium 4.2 mmol/L (3.5-5.1); Sodium 136 mmol/L (136-145); Total Protein 6.4 g/dL (6.4-8.2)
[2018-05-24 09:14] LABS: Platelet Count 451 x1000/uL (130-400)
[2018-05-24 09:15] LABS: Anisocytosis 2+; Diff Comment RBC Morph Reviewed; Hypochromasia 1+
[2018-05-24 09:16] LABS: Polychromasia Present
[2018-05-24 09:17] LABS: Poikilocytes 1+
[2018-05-27 10:06] LABS: CA 19-9 19 U/mL (<35)
[2018-05-31] MEDS: Normal Saline Flush 10 ML SYR IVP (08:25)
[2018-05-31 09:04] LABS: Abs Immature Grans 0.05 k/cumm (0.0-0.09); Absolute Basophil Count 0.06 k/cumm (0.0-0.2); Absolute Eosinophil Count 0.03 k/cumm (0.0-0.7); Absolute Monocyte Count 0.74 k/cumm (0.11-0.7); Eosinophils % 0.5; HCT 27.7 % (40.0-50.0); HGB 8.7 g/dL (13.5-17.5); Immature Grans % 0.8; Lymphocytes % 18.4; Mean Corp. HGB Concentration 31.4 g/dL (32.0-36.0); Mean Corpuscular Hemoglobin 28.3 pg (27.0-33.0); Mean Corpuscular Volume 90.2 fL (80-95); Mean Platelet Volume 10.9 fL (8.0-11.0); Monocytes % 12.4; Neutrophils % 66.9; RBC 3.07 m/cumm (4.50-6.00); RBC Distribution Width 16.1 % (11.8-14.1); White Blood Cell Count 5.98 k/cumm (4.4-10.8)
[2018-05-31 09:17] LABS: ALT 65 U/L (12-78); AST 52 U/L (15-37); Albumin 2.3 g/dL (3.4-5.0); Alkaline Phosphatase 346 U/L (46-116); Anion Gap 6.5 mmol/L (3-11); BUN 18 mg/dL (7-18); Bilirubin, Total 0.5 mg/dL (0.2-1.0); CO2 28.5 mmol/L (21.0-32.0); CREATININE 0.83 mg/dL (0.70-1.30); Calcium 8.5 mg/dL (8.5-10.1); Chloride 100 mmol/L (98-107); Glucose 180 mg/dL (70-100); Potassium 4.4 mmol/L (3.5-5.1); Sodium 135 mmol/L (136-145); Total Protein 6.6 g/dL (6.4-8.2)
[2018-05-31 09:19] LABS: Anisocytosis 2+; Diff Comment RBC Morph Reviewed; Hypochromasia 1+; Platelet Count 249 x1000/uL (130-400)
[2018-05-31 09:20] LABS: Poikilocytes 1+; Polychromasia Present
[2018-06-14] MEDS: Normal Saline Flush 10 ML SYR IVP (09:08)
[2018-06-14 09:15] LABS: Absolute Basophil Count 0.03 k/cumm (0.0-0.2); Absolute Eosinophil Count 0.29 k/cumm (0.0-0.7); Absolute Lymphocyte Count 0.99 k/cumm (1.2-3.4); Absolute Monocyte Count 0.98 k/cumm (0.11-0.7); Absolute Neutrophil Count 4.97 k/cumm (1.2-6.7); Basophils % 0.4; HGB 8.3 g/dL (13.5-17.5); Immature Grans % 0.4; Lymphocytes % 13.6; Mean Corp. HGB Concentration 30.7 g/dL (32.0-36.0); Mean Corpuscular Hemoglobin 28.4 pg (27.0-33.0); Mean Corpuscular Volume 92.5 fL (80-95); Monocytes % 13.4; Neutrophils % 68.2; Platelet Count 480 x1000/uL (130-400); RBC 2.92 m/cumm (4.50-6.00); RBC Distribution Width 18.1 % (11.8-14.1); White Blood Cell Count 7.29 k/cumm (4.4-10.8)
[2018-06-14 09:27] LABS: ALT 31 U/L (12-78); AST 18 U/L (15-37); Albumin 2.3 g/dL (3.4-5.0); Alkaline Phosphatase 278 U/L (46-116); Anion Gap 8.2 mmol/L (3-11); BUN 13 mg/dL (7-18); Bilirubin, Total 0.4 mg/dL (0.2-1.0); CO2 27.8 mmol/L (21.0-32.0); CREATININE 0.84 mg/dL (0.70-1.30); Calcium 8.1 mg/dL (8.5-10.1); Chloride 100 mmol/L (98-107); Glucose 212 mg/dL (70-100); Potassium 4.2 mmol/L (3.5-5.1); Sodium 136 mmol/L (136-145); Total Protein 6.5 g/dL (6.4-8.2)
[2018-06-14 09:37] LABS: Anisocytosis 2+; Hypochromasia 2+; Polychromasia Present
[2018-06-14 09:38] LABS: Diff Comment Diff Reviewed; Poikilocytes 2+
[2018-06-17 10:37] LABS: CA 19-9 16 U/mL (<35)
== END 2018-06-18 23:59 | disposition home or self-care (01) ==
LOC: INF 02:36
PROVIDERS: PCP Family Medicine; Visit Provider Nurse Practitioner Adult Health
DX: C25.1 Malignant neoplasm of body of pancreas (principal); Z45.2 Encounter for adjustment and management of vascular access device
CPT/HCPCS: 36591; 74177; 80053; 96523; 71260; 85025; 86301; J3490

== ENCOUNTER 2018-07-11 01:55 | Outpatient (RCR) | payer MEDICARE, MEDICAID, SELFPAY ==
[2018-06-21] MEDS: Normal Saline Flush 10 ML SYR IVP (11:02)
[2018-06-21 11:17] LABS: Abs Immature Grans 0.06 k/cumm (0.0-0.09); Absolute Basophil Count 0.05 k/cumm (0.0-0.2); Absolute Eosinophil Count 0.03 k/cumm (0.0-0.7); Absolute Lymphocyte Count 1.17 k/cumm (1.2-3.4); Absolute Monocyte Count 0.88 k/cumm (0.11-0.7); Absolute Neutrophil Count 5.52 k/cumm (1.2-6.7); Basophils % 0.6; Eosinophils % 0.4; HCT 24.7 % (40.0-50.0); HGB 7.7 g/dL (13.5-17.5); Immature Grans % 0.8; Lymphocytes % 15.2; Mean Corp. HGB Concentration 31.2 g/dL (32.0-36.0); Mean Corpuscular Hemoglobin 28.3 pg (27.0-33.0); Mean Corpuscular Volume 90.8 fL (80-95); Mean Platelet Volume 10.5 fL (8.0-11.0); Monocytes % 11.4; Neutrophils % 71.6; Platelet Count 274 x1000/uL (130-400); RBC 2.72 m/cumm (4.50-6.00); RBC Distribution Width 17.5 % (11.8-14.1); White Blood Cell Count 7.71 k/cumm (4.4-10.8)
[2018-06-21 11:25] LABS: ALT 49 U/L (12-78); AST 37 U/L (15-37); Albumin 2.3 g/dL (3.4-5.0); Alkaline Phosphatase 311 U/L (46-116); Anion Gap 7.4 mmol/L (3-11); BUN 17 mg/dL (7-18); Bilirubin, Total 0.4 mg/dL (0.2-1.0); CO2 27.6 mmol/L (21.0-32.0); CREATININE 0.75 mg/dL (0.70-1.30); Calcium 8.5 mg/dL (8.5-10.1); Chloride 99 mmol/L (98-107); Glucose 117 mg/dL (70-100); Potassium 4.4 mmol/L (3.5-5.1); Sodium 134 mmol/L (136-145); Total Protein 6.8 g/dL (6.4-8.2)
[2018-06-24] VITALS (8 sets, daily range): BP systolic 92–99; BP diastolic 61–66; PULSE 62–94; RESP 17–18; TEMP 36–37.1; O2SAT 98–100
[2018-06-24] MEDS: Heparin 500 UNITS/5 ML SYRINGE IV (14:10)
[2018-06-24] MEDS: Normal Saline Flush 10 ML SYR IVP (14:10)
[2018-07-05] MEDS: Normal Saline Flush 10 ML SYR IVP (09:46)
[2018-07-05 10:10] LABS: Abs Immature Grans 0.06 k/cumm (0.0-0.09); Absolute Basophil Count 0.05 k/cumm (0.0-0.2); Absolute Eosinophil Count 0.12 k/cumm (0.0-0.7); Absolute Lymphocyte Count 0.95 k/cumm (1.2-3.4); Absolute Neutrophil Count 8.03 k/cumm (1.2-6.7); Basophils % 0.5; Eosinophils % 1.1; HCT 29.2 % (40.0-50.0); HGB 9.1 g/dL (13.5-17.5); Immature Grans % 0.6; Mean Corp. HGB Concentration 31.2 g/dL (32.0-36.0); Mean Corpuscular Hemoglobin 28.7 pg (27.0-33.0); Mean Corpuscular Volume 92.1 fL (80-95); Mean Platelet Volume 9.8 fL (8.0-11.0); Monocytes % 13.2; Neutrophils % 75.6; Platelet Count 580 x1000/uL (130-400); RBC 3.17 m/cumm (4.50-6.00); RBC Distribution Width 17.1 % (11.8-14.1); White Blood Cell Count 10.61 k/cumm (4.4-10.8)
[2018-07-05 10:19] LABS: ALT 27 U/L (12-78); AST 20 U/L (15-37); Albumin 2.2 g/dL (3.4-5.0); Alkaline Phosphatase 272 U/L (46-116); Anion Gap 8.2 mmol/L (3-11); BUN 16 mg/dL (7-18); Bilirubin, Total 0.4 mg/dL (0.2-1.0); CO2 28.8 mmol/L (21.0-32.0); CREATININE 0.88 mg/dL (0.70-1.30); Calcium 8.4 mg/dL (8.5-10.1); Chloride 97 mmol/L (98-107); Glucose 237 mg/dL (70-100); Potassium 4.1 mmol/L (3.5-5.1); Sodium 134 mmol/L (136-145); Total Protein 6.7 g/dL (6.4-8.2)
[2018-07-08 12:09] LABS: CA 19-9 17 U/mL (<35)
[2018-07-10] MEDS: Normal Saline Flush 10 ML SYR IVP (09:40)
[2018-07-10] MEDS: Heparin 500 UNITS/5 ML SYRINGE IV (09:40)
[2018-07-10 10:21] LABS: ALT 48 U/L (12-78); AST 37 U/L (15-37); Alkaline Phosphatase 253 U/L (46-116); Anion Gap 9.1 mmol/L (3-11); BUN 21 mg/dL (7-18); Bilirubin, Total 0.7 mg/dL (0.2-1.0); CO2 25.9 mmol/L (21.0-32.0); Calcium 8.7 mg/dL (8.5-10.1); Chloride 98 mmol/L (98-107); Glucose 207 mg/dL (70-100); Potassium 4.2 mmol/L (3.5-5.1); Sodium 133 mmol/L (136-145); Total Protein 6.6 g/dL (6.4-8.2)
[2018-07-10 10:31] LABS: Abs Immature Grans 0.01 k/cumm (0.0-0.09); Absolute Basophil Count 0.03 k/cumm (0.0-0.2); Absolute Eosinophil Count 0.13 k/cumm (0.0-0.7); Absolute Lymphocyte Count 0.73 k/cumm (1.2-3.4); Absolute Monocyte Count 0.31 k/cumm (0.11-0.7); Absolute Neutrophil Count 3.72 k/cumm (1.2-6.7); Basophils % 0.6; Eosinophils % 2.6; HCT 26.8 % (40.0-50.0); HGB 8.3 g/dL (13.5-17.5); Immature Grans % 0.2; Lymphocytes % 14.8; Mean Corpuscular Hemoglobin 28.5 pg (27.0-33.0); Mean Corpuscular Volume 92.1 fL (80-95); Mean Platelet Volume 10.6 fL (8.0-11.0); Monocytes % 6.3; Neutrophils % 75.5; Platelet Count 398 x1000/uL (130-400); RBC 2.91 m/cumm (4.50-6.00); RBC Distribution Width 16.7 % (11.8-14.1); White Blood Cell Count 4.93 k/cumm (4.4-10.8)
[2018-07-10 11:00] VITALS: BP 94/61; PULSE 62; RESP 18; TEMP 36.5; O2SAT 98
[2018-07-11] VITALS (11 sets, daily range): BP systolic 96–120; BP diastolic 67–76; PULSE 76–97; RESP 18; TEMP 36–37; O2SAT 97–100
[2018-07-11] MEDS: Normal Saline Flush 10 ML SYR IVP (08:25)
[2018-07-11] MEDS: Heparin 500 UNITS/5 ML SYRINGE IV (08:25)
[2018-07-11 13:35] LABS: Abs Immature Grans 0.04 k/cumm (0.0-0.09); Absolute Basophil Count 0.04 k/cumm (0.0-0.2); Absolute Eosinophil Count 0.05 k/cumm (0.0-0.7); Absolute Lymphocyte Count 0.96 k/cumm (1.2-3.4); Absolute Monocyte Count 0.79 k/cumm (0.11-0.7); Basophils % 0.6; Eosinophils % 0.7; HCT 31.1 % (40.0-50.0); Immature Grans % 0.6; Lymphocytes % 13.3; Mean Corp. HGB Concentration 32.2 g/dL (32.0-36.0); Mean Corpuscular Hemoglobin 28.2 pg (27.0-33.0); Mean Corpuscular Volume 87.9 fL (80-95); Mean Platelet Volume 10.6 fL (8.0-11.0); Neutrophils % 73.8; Platelet Count 296 x1000/uL (130-400); RBC 3.54 m/cumm (4.50-6.00); RBC Distribution Width 19.5 % (11.8-14.1); White Blood Cell Count 7.21 k/cumm (4.4-10.8)
[2018-07-11 13:46] LABS: ALT 49 U/L (12-78); AST 38 U/L (15-37); Albumin 2.1 g/dL (3.4-5.0); Alkaline Phosphatase 275 U/L (46-116); Anion Gap 8.2 mmol/L (3-11); BUN 16 mg/dL (7-18); Bilirubin, Total 0.9 mg/dL (0.2-1.0); CO2 27.8 mmol/L (21.0-32.0); CREATININE 0.69 mg/dL (0.70-1.30); Calcium 8.4 mg/dL (8.5-10.1); Chloride 98 mmol/L (98-107); Glucose 147 mg/dL (70-100); Potassium 4.2 mmol/L (3.5-5.1); Sodium 134 mmol/L (136-145); Total Protein 6.6 g/dL (6.4-8.2)
[2018-07-11 13:47] LABS: Absolute Neutrophil Count 5.32 k/cumm (1.2-6.7)
[2018-07-11 14:07] LABS: Anisocytosis 2+; Diff Comment RBC Morph Reviewed; Hypochromasia 1+
== END 2018-07-19 23:59 | disposition home or self-care (01) ==
LOC: INF 01:55
PROVIDERS: PCP Family Medicine; Visit Provider Nurse Practitioner Adult Health
DX: C25.1 Malignant neoplasm of body of pancreas (principal); Z45.2 Encounter for adjustment and management of vascular access device
CPT/HCPCS: 36430; 36591; 80053; 86850; 86900; 86901; 86920; 85025; 86301; P9016

== ENCOUNTER 2018-07-24 00:42 | Outpatient (CLI) | payer MEDICARE, MEDICAID, SELFPAY ==
--- NOTE | 2018-07-24 10:52 | DI.CT_ITS ---
SYMPTOMS/DIAGNOSIS: NEOPLASM OF BODY OF PANCREAS, C25.1, ON TREATMENT FOR PANCREATIC CA, EVAL RESPONSE CT SCAN OF THE CHEST, ABDOMEN AND PELVIS: CT scan of the chest, abdomen and pelvis was performed following the uneventful administration of intravenous and oral contrast material. Comparison is 05/20/18. CT SCAN OF THE ABDOMEN AND PELVIS: There are again seen multiple hepatic lesions. There does not appear to be any significant change in size or number of the hepatic masses compared to the prior examination. The patient is status post cholecystectomy. The portal and superior mesenteric veins are patent. There has been no significant change in size of the pancreatic mass compared to the prior examination. The spleen and adrenal glands appear unremarkable. The kidneys show normal and symmetric enhancement. There are stable left renal cysts present. No obstruction is seen. The urinary bladder is intact. The reproductive organs are unremarkable. There is diverticulosis of the colon but no evidence of acute diverticulitis. There is stool seen throughout the colon which may represent some degree of constipation. There has been significant progression of the omental masses compared to the prior examination. In addition there has been significant increase in the abdominal and pelvic ascites. There is large amount of perihepatic and moderate amount of perisplenic ascites and a moderately large amount of pelvic ascites present. The abdominal aorta is of normal caliber. No aneurysmal dilatation is present. IMPRESSION: Advanced metastatic disease in the abdomen and pelvis with progression of omental metastases and an increase in the abdominal and pelvic ascites since 05/20/18. CT SCAN OF THE CHEST: The thoracic aorta is of normal caliber. No dissection or aneurysm is seen. The heart size is within normal limits. No significant pericardial effusion is seen. Coronary artery calcifications are present. There is again seen mediastinal adenopathy which appears stable. No pleural effusion or pneumothorax is identified. There is an infiltrate seen in the left lung base which may represent atelectasis. The pulmonary nodules previously noted appear stable. The osseous lesions appear stable. IMPRESSION: Stable metastatic disease in the chest.
[2018-07-24] MEDS: Omnipaque 350 MG/ML 100 ML BTL IJ (10:57)
[2018-07-24] MEDS: Omnipaque 350 MG/ML 50 ML BTL PO (10:58)
[2018-07-24] MEDS: Breeza Beverage 473 ML BTL PO (10:59)
== END 2018-07-24 01:02 ==
PROVIDERS: PCP Family Medicine; Visit Provider Nurse Practitioner Adult Health
DX: C25.1 Malignant neoplasm of body of pancreas (principal); R91.8 Other nonspecific abnormal finding of lung field; C78.00 Secondary malignant neoplasm of unspecified lung; R59.0 Localized enlarged lymph nodes; C78.7 Secondary malignant neoplasm of liver and intrahepatic bile duct; R18.8 Other ascites
CPT/HCPCS: 36591; 74177; 80053; 71260; 85025; 86301; J3490; Q9967

== ENCOUNTER 2018-07-24 01:06 | Outpatient (RCR) | payer MEDICARE, MEDICAID, SELFPAY ==
[2018-07-24] MEDS: Normal Saline Flush 10 ML SYR IVP (09:06)
[2018-07-24] MEDS: Heparin 500 UNITS/5 ML SYRINGE IV (09:10)
[2018-07-24 09:19] LABS: Abs Immature Grans 0.09 k/cumm (0.0-0.09); HCT 30.6 % (40.0-50.0); HGB 9.7 g/dL (13.5-17.5); Mean Corp. HGB Concentration 31.7 g/dL (32.0-36.0); Mean Corpuscular Hemoglobin 28.4 pg (27.0-33.0); Mean Corpuscular Volume 89.7 fL (80-95); Mean Platelet Volume 9.8 fL (8.0-11.0); RBC 3.41 m/cumm (4.50-6.00); RBC Distribution Width 20.1 % (11.8-14.1); White Blood Cell Count 11.27 k/cumm (4.4-10.8)
[2018-07-24 09:39] LABS: ALT 43 U/L (12-78); AST 30 U/L (15-37); Albumin 2.1 g/dL (3.4-5.0); Alkaline Phosphatase 318 U/L (46-116); Anion Gap 4.9 mmol/L (3-11); BUN 16 mg/dL (7-18); Bilirubin, Total 0.4 mg/dL (0.2-1.0); CO2 28.1 mmol/L (21.0-32.0); CREATININE 0.73 mg/dL (0.70-1.30); Calcium 8.7 mg/dL (8.5-10.1); Chloride 100 mmol/L (98-107); Glucose 108 mg/dL (70-100); Potassium 4.2 mmol/L (3.5-5.1); Sodium 133 mmol/L (136-145); Total Protein 6.6 g/dL (6.4-8.2)
[2018-07-24 09:42] LABS: Platelet Count 617 x1000/uL (130-400)
[2018-07-24 09:43] LABS: Absolute Eosinophil Count 0.23 k/cumm (0.0-0.7); Absolute Lymphocyte Count 1.69 k/cumm (1.2-3.4); Absolute Monocyte Count 1.24 k/cumm (0.11-0.7); Atypical Lymphocytes % 2
[2018-07-24 09:44] LABS: Anisocytosis 2+; Diff Comment Manual Differential; Polychromasia Present
[2018-07-26 09:20] LABS: CA 19-9 17 U/mL (<35)
== END 2018-08-18 23:59 | disposition home or self-care (01) ==
LOC: INF 01:06
PROVIDERS: Nurse Practitioner Adult Health; PCP Family Medicine; Visit Provider Internal Medicine Hematology & Oncology
DX: C25.1 Malignant neoplasm of body of pancreas (principal); Z45.2 Encounter for adjustment and management of vascular access device
CPT/HCPCS: 36591; 80053; 85025; 86301

== ENCOUNTER 2018-08-14 10:01 | Emergency (ER) | payer OTHER, SELFPAY ==
[2018-08-14] VITALS (50 sets, daily range): BP systolic 66–175; BP diastolic 37–160; PULSE 74–144; RESP 14–29; TEMP 36.1–36.6; O2SAT 94–100
--- NOTE | 2018-08-14 10:12 | NUR.NOTE ---
Nursing Note:Per MD Oshea request, hold doing EKG.
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
[2018-08-14] MEDS: Normal Saline 250 ML IV (11:20)
[2018-08-14] MEDS: Ondansetron 4 MG/2 ML VIAL IM (11:47)
[2018-08-14] MEDS: ALBUMIN HUMAN 25 GM/100 ML BAG IV (12:16)
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
== END 2018-08-14 13:15 | disposition home or self-care (01) ==
PROVIDERS: Emergency Provider Emergency Medicine; PCP Family Medicine
DX: R18.0 Malignant ascites (principal); C25.9 Malignant neoplasm of pancreas, unspecified; E11.9 Type 2 diabetes mellitus without complications
CPT/HCPCS: 49082; 49083; 96361; 96365; 96375; 99253; 99284; J3490